=== PATIENT | female | born 1950 | race Caucasian/White ===

== ENCOUNTER 2018-03-15 13:39 | Outpatient (CLI) | payer MEDICARE | END 2018-03-15 13:40 | disposition home or self-care (01) | LOC: BICRAD 13:39 | PROVIDERS: ATTEND Internal Medicine Gastroenterology | DX: K59.00 Constipation, unspecified (principal); R12 Heartburn | CPT/HCPCS: 74018 ==

== ENCOUNTER 2018-06-15 12:37 | Outpatient (CLI) | payer MEDICARE ==
--- NOTE | 2018-06-15 15:29 | ULT ---
ABDOMINAL ULTRASOUND: Date: 06/15/18 COMPARISON: None. HISTORY: Epigastric pain. TECHNIQUE: Multiplanar Sharp scale sonographic imaging of the abdomen provided. FINDINGS: Imaged pancreas unremarkable, distal body and tail obscured by bowel gas. No focal liver lesion or intrahepatic biliary dilatation. The hepatic parenchyma is mildly heterogene ous and echogenic, suggesting steatosis. The imaged IVC and aorta appear within normal limits. Gallbladder is surgically absent. CBD measures 5.0 mm, within normal limits. Right kidney measures 9.0 cm in craniocaudal dimension and demonstrates no stone, hydronephrosis, or mass. Left kidney measures 9.7 cm in craniocaudal dimension and demonstrates no stone, hydronephrosis, or m ass. Spleen is relatively small, measuring 6.8 x 2.5 cm. IMPRESSION: No acute findings. Increased echogenicity of the hepatic parenchyma suggests steatosis. POS: [facility]
== END 2018-06-15 12:38 | disposition home or self-care (01) ==
LOC: ULT 12:37
PROVIDERS: ATTEND Family Medicine
DX: R10.13 Epigastric pain (principal)
CPT/HCPCS: 76700

== ENCOUNTER 2018-06-22 13:27 | Emergency (ER) | payer MEDICARE ==
[2018-06-22] MEDS ORDERED: Pantoprazole 40 MG VIAL ONE (14:02)
[2018-06-22] MEDS ORDERED: Ondansetron ODT 4 MG TAB ONE (14:02)
[2018-06-22 14:03] LABS: Bilirubin Negative (Negative); Blood, Urine Negative (Negative); Clarity CLEAR (Clear); Glucose, Urine (Dipstick) Negative (Negative); Leukocyte Negative (Negative); Nitrite Negative (Negative); Protein, Urine (Dipstick) Negative (Neg-Trace); Specific Gravity, Urine 1.005 (1.002-1.036); Urobilinogen 0.2 mg/dL (0.2-1.0)
[2018-06-22 14:31] LABS: #Eosinphils 0.1 thou/uL (0.0-0.7); #Lymphocytes 1.9 thou/uL (1.20-3.40); #Monocytes 0.3 thou/uL (0.11-0.59); #Neutrophils 4.9 thou/uL (1.40-6.50); %Basophils 0.7 % (0.0-1.0); %Eosinophils 0.7 % (0.0-10.0); %Lymphocytes 25.6 % (21.0-51.0); %Monocytes 4.5 % (0.0-10.0); %Neutrophils 68.6 % (42.0-75.0); Hemoglobin 15.3 g/dL (12.0-16.0); Mean Corpuscular HGB CONC 34.6 g/dL (32.0-36.0); Mean Corpuscular Hemoglobin 30.5 pg (27.0-31.0); Mean Corpuscular Volume 88.1 fL (78.0-98.0); Mean Platelet Volume 7.4 fL (7.4-10.4); Platelet Count 309 thou/uL (130-400); RBC Distribution Width 10.7 % (11.5-14.5); Red Blood Cell (RBC) Count 5.01 mill/uL (4.20-5.40); White Blood Cell (WBC) Count 7.2 thou/uL (4.8-10.8)
[2018-06-22 14:49] LABS: ALT (SGPT) 23 U/L (8-55); AST (SGOT) 20 U/L (5-34); Albumin 5.3 g/dL (3.4-4.8); Alkaline Phosphatase 68 U/L (40-150); Anion Gap 15 mmol/L (10-20); BUN (Urea Nitrogen) 15 mg/dL (9.8-20.1); Bilirubin, Total 0.9 mg/dL (0.2-1.2); CK (CPK) 45 U/L (29-168); Calc. Creatinine Clearance 0 mL/min (70-130); Calcium 10.4 mg/dL (7.8-10.44); Carbon Dioxide 25 mmol/L (23-31); Chloride 101 mmol/L (98-107); Estimated GFR-MDRD 58; Globulin 3.5 g/dL (2.4-3.5); Glucose 94 mg/dL (80-115); Lipase 24 U/L (8-78); Potassium 3.7 mmol/L (3.5-5.1); Protein, Total 8.8 g/dL (6.0-8.3); Sodium 137 mmol/L (136-145)
[2018-06-22 14:53] LABS: CKMB 0.4 ng/mL (0-6.6); Troponin I Less than 0.010 ng/mL (< 0.028)
[2018-06-22] MEDS ORDERED: hydrALAZINE 20 MG/ML VIAL ONE (15:07)
== END 2018-06-22 16:20 | disposition home or self-care (01) ==
LOC: ERS 13:27
DX: K20.9 Esophagitis, unspecified (principal); E78.5 Hyperlipidemia, unspecified; I10 Essential (primary) hypertension; J45.909 Unspecified asthma, uncomplicated
CPT/HCPCS: 36415; 80053; 81003; 82550; 82553; 83690; 83880; 84484; 85025; 96374; C9113; J0360; Q0162

== ENCOUNTER 2018-08-12 14:01 | Outpatient (CLI) | payer MEDICARE ==
--- NOTE | 2018-09-06 16:03 | MMO ---
DIGITAL SCREENING MAMMOGRAM: 08/12/2018 COMPARISON: 08/25/2013 TECHNIQUE: The patient's mammogram was also evaluated using computer aided detection. FINDINGS: Digital screening mammogram demonstrates no definite evidence of masses or lesions. No evidence of m icrocalcifications or architectural distortion seen. No significant evidence of masses or lesions no steff. IMPRESSION: BI-RADS Category 1-Negative examination. POS: [facility]
== END 2018-08-12 14:02 | disposition home or self-care (01) ==
LOC: SCSMAMMO 14:01
PROVIDERS: ATTEND Family Medicine
DX: Z12.31 Encounter for screening mammogram for malignant neoplasm of breast (principal)
CPT/HCPCS: 77067

== ENCOUNTER 2018-08-20 05:54 | Emergency (ER) | payer MEDICARE ==
[2018-08-20] MEDS ORDERED: Lidocaine Viscous Sol 2% 15 ml UD Cup ONE ×2 (06:39→08:36)
[2018-08-20] MEDS ORDERED: Mag-Al 1200 mg/1200 mg/30 ML UDCUP ONE (06:39)
[2018-08-20 06:44] LABS: #Eosinphils 0.1 thou/uL (0.0-0.7); #Lymphocytes 1.8 thou/uL (1.20-3.40); #Monocytes 0.7 thou/uL (0.11-0.59); #Neutrophils 3.8 thou/uL (1.40-6.50); %Basophils 0.4 % (0.0-1.0); %Eosinophils 2.2 % (0.0-10.0); %Lymphocytes 28.2 % (21.0-51.0); %Monocytes 10.2 % (0.0-10.0); Hemoglobin 13.7 g/dL (12.0-16.0); Mean Corpuscular HGB CONC 34.2 g/dL (32.0-36.0); Mean Corpuscular Hemoglobin 30.4 pg (27.0-31.0); Mean Corpuscular Volume 88.9 fL (78.0-98.0); Mean Platelet Volume 7.9 fL (7.4-10.4); Platelet Count 326 thou/uL (130-400); RBC Distribution Width 10.8 % (11.5-14.5); White Blood Cell (WBC) Count 6.5 thou/uL (4.8-10.8)
[2018-08-20 07:07] LABS: ALT (SGPT) 32 U/L (8-55); AST (SGOT) 37 U/L (5-34); Albumin 4.5 g/dL (3.4-4.8); Alkaline Phosphatase 65 U/L (40-150); Anion Gap 12 mmol/L (10-20); BUN (Urea Nitrogen) 17 mg/dL (9.8-20.1); Bilirubin, Total 0.5 mg/dL (0.2-1.2); CK (CPK) 43 U/L (29-168); Calc. Creatinine Clearance 0 mL/min (70-130); Carbon Dioxide 25 mmol/L (23-31); Chloride 104 mmol/L (98-107); Estimated GFR-MDRD 64; Globulin 3.2 g/dL (2.4-3.5); Glucose 115 mg/dL (80-115); Lipase 37 U/L (8-78); Potassium 4.2 mmol/L (3.5-5.1); Protein, Total 7.7 g/dL (6.0-8.3); Sodium 137 mmol/L (136-145)
[2018-08-20 07:12] LABS: CKMB 0.4 ng/mL (0-6.6); Troponin I Less than 0.010 ng/mL (< 0.028)
--- NOTE | 2018-08-20 08:04 | RAD ---
RIGHT SHOULDER 3 VIEWS: Date: 08/20/18 HISTORY: Right shoulder pain. FINDINGS: Acromioclavicular and glenohumeral alignment are maintained. Mild osteophytosis. No acute fracture or dislocation. Short metallic bar overlies the proximal humeral shaft on two of the views, but is favo red to represent overlying artifact. IMPRESSION: No acute osseous abnormalities are demonstrated. POS: [facility]
[2018-08-20] MEDS ORDERED: HYDROcodone/Acetaminophen 10/325 mg Tablet ONE (08:35)
[2018-08-20] MEDS ORDERED: Milk Of Magnesia 30 ML UDCUP ONE (08:35)
--- NOTE | 2018-08-20 08:53 | CT ---
NONCONTRAST CT CERVICAL SPINE: DATE: 08/20/2018. HISTORY: Neck pain and right shoulder pain as well as right elbow pain. TECHNIQUE: Contiguous axial CT images are obtained through the cervical spine from the skull base to the level o f the T2 vertebral body. Sagittal and coronal reformatted images are provided. FINDINGS: There is no fracture or subluxation involving the cervical spine. Vertebral body heights are within normal limits. Degenerative changes are seen in the cervical spine at the C5-6 level where there is narrowing of the intervertebral disk space with posterior osteophyte formation present which does res ult in moderate to severe left-sided neural foraminal narrowing and moderate right-sided neural florian inal narrowing. There are also mild degenerative changes at the C6-7 level with posterior disk-osteo phyte complex present which results in mild effacement of the ventral subarachnoid space as well as m ild encroachment on the left neural foramen. Prevertebral soft tissues are within normal limits. Limited visualized lung apices are clear. IMPRESSION: 1. Degenerative changes of the cervical spine at C5-6 and C6-7 levels where there is neural foramina l and central spinal canal narrowing. 2. No acute fracture or subluxation involving the cervical spine. POS: [facility]
== END 2018-08-20 08:38 | disposition home or self-care (01) ==
LOC: ERS 05:54
DX: M54.12 Radiculopathy, cervical region (principal); K20.9 Esophagitis, unspecified; E78.5 Hyperlipidemia, unspecified; I10 Essential (primary) hypertension; J45.909 Unspecified asthma, uncomplicated; Z79.899 Other long term (current) drug therapy
CPT/HCPCS: 36415; 72125; 80053; 82550; 82553; 83690; 84484; 85025; 93005